=== PATIENT | male | born 2000 | race Two or more races ===

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

== ENCOUNTER → 2021-04-04 | Outpatient (CLI) | payer BC, OTHER ==
[2021-04-05 12:06] LABS: HEPATITIS B SURFACE AB Reactive (.); HEPATITIS Be ANTIGEN Negative (Negative)
== END | disposition home or self-care (01) ==
LOC: LAB 10:25
DX: Z01.84 Encounter for antibody response examination (principal); J30.9 Allergic rhinitis, unspecified
CPT/HCPCS: 36415; 82785; 86706; 87350

== ENCOUNTER 2022-03-08 10:24 | Outpatient (CLI) | payer BC, OTHER ==
[2022-03-08 10:52] LABS: HEMATOCRIT 47.1 % (36.7-47.1); MEAN CORPUSCULAR HEMOGLOBIN 27.4 uug (23.8-33.4); MEAN CORPUSCULAR VOLUME 79.7 fL (73.0-96.2); PLATELET COUNT (AUTO) 248 K/uL (152-348)
[2022-03-08 10:55] LABS: *BILIRUBIN,URIN NEGATIVE (NEGATIVE); *CLARITY,URINE CLEAR (CLEAR); *COLOR,URINE YELLOW (YELLOW); *KETONES,URINE NEGATIVE (NEGATIVE); *UROBILINOGEN,URINE 0.2 E.U./dl (NORMAL); LEUKOCYTE ESTERASE ,URINE NEGATIVE (NEGATIVE); NITRITE, URINE NEGATIVE (NEGATIVE); UGLUCOSE NEGATIVE (NEGATIVE)
[2022-03-08 11:02] LABS: *BLOOD, URINE TRACE (NEGATIVE)
[2022-03-08 11:12] LABS: BILIRUBIN,TOTAL 0.6 mg/dL (0.2-1.0); CREATININE 0.9 mg/dL (0.6-1.3); POTASSIUM 3.5 mmol/L (3.5-5.1); TOTAL PROTEIN, SERUM 7.4 g/dL (6.4-8.2)
[2022-03-08 11:37] LABS: THYROID STIMULATING HORMONE 2.5 mIU/mL (0.358-3.740)
[2022-03-08 15:42] LABS: BACTERIA,URINE NONE SEEN /HPF (NONE SEEN); SQUAMOUS EPITHELIAL CELL,UR FEW /HPF (NONE SEEN); WBC,URINE 0-3 /HPF (0-3)
[2022-03-09 10:07] LABS: *TESTOSTERONE, SERUM 781 ng/dL (264-916)
== END 2022-03-08 23:59 | disposition home or self-care (01) ==
LOC: LAB 10:24
PROVIDERS: ATTEND Legal Medicine
DX: Z00.00 Encounter for general adult medical examination without abnormal findings (principal); E78.00 Pure hypercholesterolemia, unspecified; E55.9 Vitamin D deficiency, unspecified; E03.9 Hypothyroidism, unspecified; R53.1 Weakness
CPT/HCPCS: 36415; 82306; 82746; 83550; 84402; 84403; 84443; 85025